=== PATIENT | female | born 1990 | race Caucasian/White ===

== ENCOUNTER 2022-04-26 06:10 | Inpatient (IN) ==
[2022-04-26] MEDS ORDERED: Lactated Ringers 1000 ml BAG 1,000 ML IV ONE (06:38)
[2022-04-26] MEDS ORDERED: Buffered Lidocaine 1% SYRIN 1 ml INTRADERM ONE (06:38)
[2022-04-26] MEDS ORDERED: Lactated Ringers 1000 ml BAG 1,000 ML IV SCH ×2 (07:00→23:00)
[2022-04-26 07:43] LABS: Urine Benzodiazepine Screen None Detected (None Detect); Urine Cannabinoids Screen None Detected (None Detect); Urine Opiates Screen None Detected (None Detect)
[2022-04-26] MEDS ORDERED: ceFOXitin 2 GM IVPREMIX 2 GM/50 ML BAG IVPB ONE (20:46)
[2022-04-26] MEDS ORDERED: Sodium Citrate/Citric Acid LIQ 15 ML UDC PO ONE (20:47)
[2022-04-26 20:48] LABS: Hematocrit 36 % (35-47); Hemoglobin 11.9 g/dL (12.0-16.0); Mean Corpuscular HGB Conc 33 g/dL (31-36); Mean Corpuscular Hemoglobin 32 pg (27-31); Mean Corpuscular Volume 96 fL (80-97); Mean Platelet Volume 12.7 fL (7.4-10.4); Platelet Count 158 10^3/uL (150-450); Red Blood Count 3.74 10^6 /uL (3.70-4.87); Red Cell Distribution Width 12 % (10-15); White Blood Count 22.8 10^3/uL (3.5-10.8)
[2022-04-26] MEDS ORDERED: Morphine PF AMP (0.5MG/ML) 5 MG/10 ML AMP ONE (20:54)
[2022-04-26 21:17] LABS: ABS Lymphocytes 0.8 10^3/ul (1.0-4.8); ABS Monocytes 0.9 10^3/ul (0-0.8); ABS Neutrophils 21.1 10^3/ul (1.5-7.7); Lymphocyte % 3.4 %
[2022-04-26] MEDS ORDERED: Oxytocin 10 UNITS/ML 1 ML VIAL ONE (21:46)
[2022-04-26 22:19] LABS: Urine Appearance Cloudy; Urine Bilirubin Negative (Negative); Urine Blood 2+ (Negative); Urine Color Amber; Urine Glucose Negative (Negative); Urine Ketones 1+ (Negative); Urine Nitrite Negative (Negative); Urine Protein 2+(100 mg/dL) (Negative); Urine Specific Gravity 1.024 (1.002-1.030); Urine Urobilinogen Negative (Negative)
[2022-04-26] MEDS ORDERED: Witch Hazel PAD JAR TOPICAL PRN (22:26)
[2022-04-26] MEDS ORDERED: Glycerin ADULT 2.4 gm SUPP PR PRN (22:26)
[2022-04-26] MEDS ORDERED: Dibucaine 1% OINT 28.35 GM TUBE PR PRN (22:26)
[2022-04-26] MEDS ORDERED: Methylergonovine 0.2 mg AMPULE 1 ml AMP IM ONE (22:26)
[2022-04-26 22:27] LABS: Urine Bacteria Absent (Absent); Urine Red Blood Cell 3+(>10/hpf) (Absent); Urine Squamous Epithelial Cell Present (Absent); Urine White Blood Cell Trace(0-5/hpf) (Absent)
[2022-04-26] MEDS ORDERED: Naloxone 0.4 mg VIAL 0.4 mg/ml 1 ml VIAL IV PUSH PRN (22:29)
[2022-04-26] MEDS ORDERED: Metoclopramide 5 MG/ML VIAL (10 mg) IV PRN (22:29)
[2022-04-26] MEDS ORDERED: Ondansetron 4 mg VIAL 2 MG/ML 2 ml VIAL IV PRN (22:29)
[2022-04-26] MEDS ORDERED: Acetaminophen IV 1 GM/100ML 1,000 MG/100 ML BAG IV PRN (22:29)
[2022-04-26] MEDS ORDERED: Oxytocin in LR 20,000 MILLI.UNIT/1,000 ML BAG IV SCH (22:30)
[2022-04-27 06:31] LABS: ABS Lymphocytes 1.3 10^3/ul (1.0-4.8); ABS Monocytes 0.6 10^3/ul (0-0.8); ABS Neutrophils 16.1 10^3/ul (1.5-7.7); Hematocrit 32 % (35-47); Hemoglobin 10.9 g/dL (12.0-16.0); Lymphocyte % 7.3 %; Mean Corpuscular HGB Conc 34 g/dL (31-36); Mean Corpuscular Hemoglobin 33 pg (27-31); Mean Corpuscular Volume 96 fL (80-97); Mean Platelet Volume 12.2 fL (7.4-10.4); Platelet Count 132 10^3/uL (150-450); Red Blood Count 3.35 10^6 /uL (3.70-4.87); Red Cell Distribution Width 13 % (10-15)
[2022-04-29 08:53] VITALS: BP 120/72
== END 2022-04-29 14:07 | disposition home or self-care (01) | DRG 788 ==
LOC: MCHOBOUT 06:10 → MCHOB 06:45
PROVIDERS: ADMIT Midwife; ATTEND Midwife